=== PATIENT | female | born 1945 | race Caucasian/White ===

== ENCOUNTER 2017-03-27 09:27 | Emergency (ER) | payer OTHER ==
[2017-03-27 09:58] VITALS: BP 134/84
[2017-03-27] MEDS ORDERED: KETOROLAC TROMETHAMINE 60 MG/2 ML VIAL IM ONE ×2 (10:27→10:33)
--- NOTE | 2017-03-27 10:33 | ERNOTE ---
Upper Extremity HPI - Narrative Date of Service: 03/27/17 - General Extremities Pain Location: shoulder: right Time Seen by Provider: 03/27/17 10:20 Source: patient Exam Limitations: no limitations - Immun/Allergies/Home Medications Immunizations: IMMUNIZATION HX Immunizations Up to Date Yes Allergies/Adverse Reactions: Allergies Allergy/AdvReac Type Severity Reaction Status Date / Time No Known Allergies Allergy Unverified 03/27/17 09:58 Home Medications: HOME MEDICATIONS oxyCODONE HCL/ACETAMINOPHEN [Percocet 5 MG/325 MG] 1 tab PO Q4H PRN #20 tab [Last Taken Unknown] - History of Present Illness Narrative: Pt. comes in with c/o R shoulder pain after she got her foot caught on the rug while exercising just prior to arrival when she was exercising just prior to arrival. Pt. denies any SOB, CP, NVD fever, recent illness. Pt. does states that she is unable to move her R arm and aggravates the pain.. Pt. denies any alleviating factors or prehospital treatment. Review of Systems - Review of Systems Constitutional: Present: no symptoms reported. Absent: recent illness, fever, chills, weakness, fatigue, malaise EYE: Present: no symptoms reported ENT: Present: no symptoms reported Respiratory: Present: no symptoms reported. Absent: shortness of breath, cough , wheezing Cardiology: Present: no symptoms reported. Absent: chest pain, palpitations, edema Gastrointestinal/Abdominal: Present: no symptoms reported Genitourinary: Present: no symptoms reported Musculoskeletal: Present: joint pain - R shoulder. Absent: back pain Skin: Present: no symptoms reported. Absent: rash, change in hair/nails Neurological: Present: no symptoms reported. Absent: headache, dizziness/light- headedness, numbness, tingling All Other Systems: All systems neg except as marked - Patient's Past Medical History Patient History - Medical: Diabetes Type 2 Insulin Dependent Patient History - Cardiac/Respiratory: Hypertension Patient History - Cancer: No Hx of Cancer Patient History - Surgical Procedures: Appendectomy, Cholecystectomy, Orthopedic - Social History Smoking Status: Never smoker Have you smoked in the past 12 months: No - Immunizations Immunizations Up to Date: Yes Physical Exam - Physical Exam General Appearance: Present: wd/wn, alert, no apparent distress Head Exam: Present: normal inspection, no evidence of injury Eye Exam: Normal inspection: bilateral, PERRL: bilateral, EOMI: bilateral Ears, Nose, Throat: Present: normal ENT inspection, normal pharynx Neck: Present: normal inspection, nontender. Absent: lymphadenopathy (R), lymphadenopathy (L) Respiratory: Present: no respiratory distress, normal breath sounds, no accessory muscle use, chest nontender, lungs clear Cardiovascular/Chest: Present: regular rate, rhythm, no murmur, normal peripheral pulses Gastrointestinal/Abdominal: Present: normal bowel sounds, nontender, nondistended, soft, no organomegaly Back Exam: Present: normal inspection Extremity Exam: Present: no edema, decreased range of motion - abduction, bony tenderness - prox humerus Neurological Exam: Present: alert, oriented, normal mood/affect, no motor/ sensory deficits, road manager II-XII nml as tested, normal cerebellar test Skin Exam: Present: warm/dry, pallor ED Progress - Date and Time Seen: Date and Time: 03/27/17Discussed with Dr Barnard and he recommends seeing pt. on in clinic after applying a shoulder immobilizer. - Vital Signs Patient's Vital Signs:: I have reviewed the patient's vital signs. Vital Signs: Vital Signs 03/27/17 09:56 Temperature 36.3 C L Pulse Rate 75 Respiratory 14 Rate Blood Pressure 134/84 O2 Sat by Pulse 98 Oximetry - X-Ray X-Ray #1 X-Ray: shoulder Interpretation: Reviewed by me X-ray Comments: AP, Grashey, scapular Y views of the right shoulder. COMPARISONS: None available. Shoulder 3 of More Views RT * There is a comminuted fracture of the proximal humerus centered at the surgical neck, with a displaced fragment which contains the greater tuberosity seen best on the Grashey image. The glenohumeral joint appears to be somewhat widened, which could be due to hemarthrosis/joint effusion. There is no bruce dislocation. Degenerative arthropathy of the acromioclavicular joints noted. Acromioclavicular joint in normal alignment without abnormal widening. Soft tissue swelling noted overlying the shoulder. Visualized portions of the chest grossly unremarkable. IMPRESSION: 1. Comminuted fracture of the proximal humerus as above. 2. Additional comments are as above. Electronically signed by Pil Ramirez, M.D.. - Progress/Reassessment Chief Complaint: Shoulder Injury/Pain Progress:: Improved Departure Clinical Impression: Humerus surgical neck fracture Qualifiers: Encounter type: initial encounter Fracture type: closed Fracture morphology: unspecified fracture morphology Fracture alignment: displaced Laterality: right Qualified Code(s): S42.211A - Unspecified displaced fracture of surgical neck of right humerus, initial encounter for closed fracture - Departure Disposition: Home self-care Condition: Good Instructions: Humerus Fracture Treated With Immobilization, [id number] Additional Instructions: Please follow up ith Dr barnard as planned No use of R arm until seen by him. Prescriptions: oxyCODONE HCL/ACETAMINOPHEN [Percocet 5 MG/325 MG] 1 tab PO Q4H PRN #20 tab PRN Reason: Pain
== END 2017-03-27 11:23 | disposition home or self-care (01) ==
LOC: ER 09:27
DX: S42.211A Unspecified displaced fracture of surgical neck of right humerus, initial encounter for closed fracture (principal); W18.41XA Slipping, tripping and stumbling without falling due to stepping on object, initial encounter; Y93.B9 Activity, other involving muscle strengthening exercises

== ENCOUNTER 2017-04-02 11:33 | Day surgery (SDC) | payer OTHER ==
[~2017-04-02 11:33] MED LIST: RINGER'S SOLUTION,LACTATED 1,000 ML IV PRN; ceFAZolin SODIUM 1 GM VIAL IV PRN
[2017-04-02] MEDS ORDERED: RINGER'S SOLUTION,LACTATED 1,000 ML IV ONE (14:55)
--- NOTE | 2017-04-02 16:34 | OR ---
Anesthesia Procedure Note - Anesthesia Procedure Note Date of Service: 04/02/17 Narrative: Vital Signs - Last Taken Temp 36.4 C L 04/02/17 16:25 Pulse 75 04/02/17 16:25 Resp 14 04/02/17 16:25 BP 103/47 04/02/17 16:25 Pulse Ox 92 04/02/17 16:25 O2 Oxygen Delivery Method Nasal Cannula 04/02/17 16:32 ANESTHESIA PROCEDURE NOTE Date of Procedure: 04/02/2017 Time of procedure: 1405. Performed by: JULIANNE Cobos CRNAP, MSN Disability Examiner: Cherry Lutz RN. Preprocedure diagnosis: Right proximal humeral fracture. Post procedure diagnosis: Same. Procedure: Right Interscalene nerve block. Indications: Post proximal humeral fracture and shoulder surgery pain relief. Findings: See below. Details of the procedure: The patient was brought to OR #4 and placed in semi- Fowlers position. The patient was prepped with chlorhexidine and using ultrasound guidance the right interscalene segment of the brachial plexus was identified and lidocaine 1% was infiltrated to the skin of the intended injection site. Under ultrasound guidance the interscalene nerve bundles were approached with visualization of a 2inch stimulator needle visualized unde ultrasound until a shoulder/arm response was identified on nerve stimulator. Once the stimulator response was effective at less than 0.5 mV and greater than 0.3 mV the bracheal plexus nerves at this level were surrounded with 30 mL bupivacaine 0.25% with 1-200,000 epinephrine. Please see radiology/ultrasound report for details and retained images of the procedure. EBL: 0 Fluids: N/A. Specimen: N/A. Post procedure condition: The patient tolerated the procedure well. No complications were noted. Thank you for this consultation. Prashant Stephens CRNA, LABELING SPECIALIST, MSN
[2017-04-02 18:30] VITALS: BP 128/65
== END 2017-04-02 11:34 | disposition home or self-care (01) ==
LOC: AMB 11:33
PROVIDERS: ATTEND Orthopaedic Surgery
PROC: 3E0T3BZ Introduction of Anesthetic Agent into Peripheral Nerves and Plexi, Percutaneous Approach (ICD-10-PCS; principal; 2017-04-02)
PROC: 0PSC04Z Reposition Right Humeral Head with Internal Fixation Device, Open Approach (ICD-10-PCS; 2017-04-02)
PROC: 0LQ10ZZ Repair Right Shoulder Tendon, Open Approach (ICD-10-PCS; 2017-04-02)
DX: S42.211A Unspecified displaced fracture of surgical neck of right humerus, initial encounter for closed fracture (principal); S46.011A Strain of muscle(s) and tendon(s) of the rotator cuff of right shoulder, initial encounter; E11.9 Type 2 diabetes mellitus without complications; I10 Essential (primary) hypertension; E07.9 Disorder of thyroid, unspecified; W01.0XXA Fall on same level from slipping, tripping and stumbling without subsequent striking against object, initial encounter; Z68.29 Body mass index [BMI] 29.0-29.9, adult
CPT/HCPCS: 23410; 23615; 64415; 73030; 76000; C1713